=== PATIENT | male | born 1970 | race Caucasian/White ===

== ENCOUNTER 2018-10-22 18:05 | Emergency (ER) | payer MEDICARE ==
[~2018-10-22] VITALS: Ht 162.6 cm; Wt 63.6 kg
[~2018-10-22 18:05] MED LIST: ALBUTEROL INHALER
[2018-10-22] MEDS ORDERED: PRED1 PO (19:11)
[2018-10-22] MEDS ORDERED: LIB25 PO (19:11)
[2018-10-22] MEDS ORDERED: ALBU8HFA IH (19:11)
[2018-10-22] MEDS ORDERED: IBUPROFEN 600 MG TABLET PO ONE (20:45)
[2018-10-22] MEDS ORDERED: HYDROCODONE/ACETAMINOPHEN 5-325 MG TABLET PO ONE (20:45)
[2018-10-22] MEDS ORDERED: ALBUTEROL SULFATE HFA 90 MCG/PUFF 8 GM INHALER IH ONE (21:30)
[2018-10-22 21:34] VITALS: BP 120/76
== END 2018-10-22 21:50 | disposition home or self-care (01) ==
LOC: EMS 18:06
DX: S20.212A Contusion of left front wall of thorax, initial encounter (principal); S70.02XA Contusion of left hip, initial encounter; J45.909 Unspecified asthma, uncomplicated; F10.20 Alcohol dependence, uncomplicated; F17.210 Nicotine dependence, cigarettes, uncomplicated; Z59.0 Homelessness; Z79.899 Other long term (current) drug therapy; Y04.0XXA Assault by unarmed brawl or fight, initial encounter; Y93.89 Activity, other specified; Y92.89 Other specified places as the place of occurrence of the external cause; Y99.8 Other external cause status
CPT/HCPCS: 73503; 94640; J3535